=== PATIENT | male | born 1980 | race Caucasian/White ===

== ENCOUNTER → 2017-05-07 | Emergency (ER) | payer MEDICARE ==
[~2017-05-07] VITALS: Ht 175.3 cm; Wt 78.6 kg
[~2017-05-07] MED LIST: ACETAMINOPHEN W1 TA6 PO; AMOXICILLIN 50500 MG PO; ANUSOL 1%-12.5%1 OIN TP; ANUSOL HC25 MG/SUPP RC; BACTROBAN22 TOP; BUSPAR DIVIDOSE15 MG PO; CLEOCIN HCL300 MG PO; FLEXERIL 1010 MG/TAB PO; LORTAB 5/500 501 TAB PO; MEDROL 4MG DOSPA4 MG PO; MOTRIN 800800 MG/TAB PO; NAPROSYN 2250 MG/TAB PO; NAPROSYN500 MG PO; NAPROXEN 3375 MG/TAB PO; NO HOME MEDICATIONS; NORCO 325 MG-51 TAB PO; NORCO 325 MG-7.1 TAB PO; OXY IR5 MG PO; PEN-VEE K250 MG PO; PEN-VEE K500 MG PO; PENICILLIN V500 MG PO; PERCOCET 325 MG1 TA2 PO; PREDNISONE10 MG PO; PROZAC 10MG10 MG; REMERON45 MG PO; ROXICODONE 55 MG/TAB PO; TUSS PO; TYLENOL 500MG500 MG PO; ULTRAM 50MG TAB50 MG PO; VICOPROFEN 7.51 TAB PO
[2017-05-07 13:57] VITALS: BP 135/76; PULSE 106; TEMP 98.8
== END ==
LOC: COL.ER 13:54
DX: K08.89 Other specified disorders of teeth and supporting structures (principal); K03.81 Cracked tooth; F42.9 Obsessive-compulsive disorder, unspecified

== ENCOUNTER 2017-05-09 13:06 | Emergency (ER) | payer MEDICARE ==
[~2017-05-09] VITALS: Ht 175.3 cm; Wt 72.7 kg
[2017-05-09 13:08] VITALS: BP 130/66; PULSE 93; TEMP 98.2
== END 2017-05-09 15:39 | disposition home or self-care (01) ==
LOC: COL.ER 13:06
DX: S80.11XA Contusion of right lower leg, initial encounter (principal); M54.9 Dorsalgia, unspecified; G89.29 Other chronic pain; W22.03XA Walked into furniture, initial encounter

== ENCOUNTER → 2018-01-09 | Outpatient (REF) ==
[2018-01-09 16:59] LABS: BILIRUBIN,TOTAL 0.9 mg/dL (0.0-1.0); CALCIUM 9.4 mg/dL (8.4-10.2); CREATININE, serum 0.64 mg/dL (0.66-1.25); POTASSIUM 3.7 mmol/L (3.4-5.0); TOTAL PROTEIN 7.3 gm/dL (6.4-8.2)
== END ==
LOC: ZLAB.WCH 16:43
PROVIDERS: Nurse Practitioner Primary Care
DX: Z01.89 Encounter for other specified special examinations (principal)

== ENCOUNTER 2019-03-14 13:48 | Emergency (ER) | payer SELFPAY ==
[~2019-03-14] VITALS: Ht 182.9 cm; Wt 90.9 kg
[2019-03-14 13:50] VITALS: BP 140/104; PULSE 70; TEMP 98
[2019-03-14 14:09] LABS: BASO % 0.5 % (0.0-2.0); GRAN # 2.2 (1.4-6.5); GRAN % 53.6 % (42.2-75.2); HEMATOCRIT 40.6 % (42.0-52.0); HEMOGLOBIN 13.7 g/dl (13.5-18.0); LYMPH # 1.3 (1.2-3.4); LYMPH % 32.9 % (20.0-51.0); MEAN CELL VOLUME 89 fl (80.0-100.0); MEAN CORPUSCULAR HEMOGLOBIN 30 pg (27.0-31.0); MEAN CORPUSCULAR HGB CONC 34 g/dl (33.0-37.0); MEAN PLATELET VOLUME 10.3 fl (7.4-10.4); MONO # 0.5 (0.1-0.6); PLATELET COUNT 199 K/mm3 (130-400); RED BLOOD COUNT 4.54 M/mm3 (4.20-5.60); REDCELL DISTRIBUTION WIDTH-CV 13.2 % (11.5-14.5)
[2019-03-14 14:19] LABS: ALANINE AMINOTRANSFERASE 19 U/L (21-72); ALBUMIN 4.3 gm/dL (3.5-5.0); ALKALINE PHOSPHATASE 55 U/L (50-136); ANION GAP 11 mmol/L (7-16); AST,SGOT 30 U/L (15-37); BILIRUBIN,TOTAL 0.8 mg/dL (0.0-1.0); BLOOD UREA NITROGEN 15 mg/dL (9-20); CARBON DIOXIDE 27 mmol/L (22-30); CHLORIDE 106 mmol/L (98-107); CREATININE, serum 0.74 (0.66-1.25); GLUCOSE 88 mg/dL (74-106); POTASSIUM 3.7 mmol/L (3.4-5.0); SODIUM 144 mmol/L (137-145); TOTAL PROTEIN 7.4 gm/dL (6.4-8.2)
[2019-03-14 14:24] LABS: ALCOHOL(ethanol),MEDICAL < 10 mg/dL
[2019-03-14] MEDS ORDERED: NORCO 325 MG-51 TAB PO (16:42)
== END 2019-03-14 17:00 | disposition home or self-care (01) ==
LOC: COL.ER 13:48
PROVIDERS: Emergency Medicine
DX: S06.0X0A Concussion without loss of consciousness, initial encounter (principal); S02.2XXA Fracture of nasal bones, initial encounter for closed fracture; R40.2412 Glasgow coma scale score 13-15, at arrival to emergency department; V19.9XXA Pedal cyclist (driver) (passenger) injured in unspecified traffic accident, initial encounter
CPT/HCPCS: J7030; Q9967

== ENCOUNTER 2019-03-22 19:14 | Emergency (ER) | payer SELFPAY ==
[~2019-03-22] VITALS: Ht 175.3 cm; Wt 70.5 kg
[2019-03-22 19:30] VITALS: BP 121/81; TEMP 97.8
[2019-03-22 21:27] VITALS: PULSE 90
== END 2019-03-22 21:27 | disposition home or self-care (01) ==
LOC: COL.ER 19:14
DX: S93.402A Sprain of unspecified ligament of left ankle, initial encounter (principal); Z88.5 Allergy status to narcotic agent; Z86.19 Personal history of other infectious and parasitic diseases; X50.1XXA Overexertion from prolonged static or awkward postures, initial encounter; V19.9XXA Pedal cyclist (driver) (passenger) injured in unspecified traffic accident, initial encounter; Y92.410 Unspecified street and highway as the place of occurrence of the external cause

== ENCOUNTER 2019-09-08 18:04 | Emergency (ER) | payer OTHER ==
[~2019-09-08] VITALS: Ht 175.3 cm; Wt 83.9 kg
[~2019-09-08 18:04] MED LIST changes: +CRUTCHES MC
[2019-09-08 18:09] VITALS: TEMP 97.7
[2019-09-08 18:47] LABS: BASO % 0.5 % (0.0-2.0); EOS # 0.1 (0.0-0.7); EOS % 1.6 % (0-4.0); GRAN % 52.5 % (42.2-75.2); HEMATOCRIT 46.9 % (42.0-52.0); HEMOGLOBIN 15.5 g/dl (13.5-18.0); LYMPH # 1.9 (1.2-3.4); LYMPH % 32.5 % (20.0-51.0); MEAN CELL VOLUME 91 fl (80.0-100.0); MEAN CORPUSCULAR HEMOGLOBIN 30 pg (27.0-31.0); MEAN CORPUSCULAR HGB CONC 33 g/dl (33.0-37.0); MEAN PLATELET VOLUME 10.6 fl (7.4-10.4); MONO # 0.7 (0.1-0.6); MONO % 12.7 % (1.7-9.3); PLATELET COUNT 271 K/mm3 (130-400); RED BLOOD COUNT 5.18 M/mm3 (4.20-5.60); REDCELL DISTRIBUTION WIDTH-CV 12.8 % (11.5-14.5)
[2019-09-08 18:59] LABS: ALBUMIN 4.8 gm/dL (3.5-5.0); BILIRUBIN,TOTAL 0.6 mg/dL (0.0-1.0); C-REACTIVE PROTEIN 0.5 mg/dL (0.0-0.9); CALCIUM 9.3 mg/dL (8.4-10.2); CREATININE, serum 0.79 (0.66-1.25); POTASSIUM 4.4 mmol/L (3.4-5.0)
[2019-09-08 20:11] LABS: COLLECTION METHOD CLEAN CATCH
[2019-09-08 20:19] LABS: MUCOUS Present /lpf; PH 5 (5-8); SQUAMOUS EPITHELIAL None Seen /hpf; URINE APPEARANCE Clear; URINE BACTERIA None Seen /hpf; URINE BILIRUBIN Negative (NEGATIVE); URINE BLOOD Negative (NEGATIVE); URINE COLOR Yellow; URINE GLUCOSE Negative (NEGATIVE); URINE KETONE Negative (NEGATIVE); URINE LEUKOCYTE ESTERASE Negative (NEGATIVE); URINE NITRATE Negative (NEGATIVE); URINE PROTEIN(semi-quant) Negative (NEGATIVE); URINE RBC 0-2 /hpf; URINE UROBILINOGEN Negative (NEGATIVE)
[2019-09-08 21:22] VITALS: BP 110/83; PULSE 81
== END 2019-09-08 21:22 | disposition home or self-care (01) ==
LOC: COL.ER 18:04
PROVIDERS: Emergency Medicine
DX: K62.5 Hemorrhage of anus and rectum (principal); R10.9 Unspecified abdominal pain
CPT/HCPCS: J2405; J3010; J7030; Q9967

== ENCOUNTER 2020-02-22 17:02 | Emergency (ER) | payer SELFPAY ==
[~2020-02-22] VITALS: Ht 182.9 cm; Wt 84.1 kg
[2020-02-22 17:04] VITALS: TEMP 98.4
[2020-02-22 18:19] LABS: BASO % 0.5 % (0.0-2.0); EOS # 0.1 (0.0-0.7); EOS % 1.4 % (0-4.0); GRAN # 3.7 (1.4-6.5); GRAN % 57.4 % (42.2-75.2); HEMATOCRIT 44.3 % (42.0-52.0); HEMOGLOBIN 14.9 g/dl (13.5-18.0); LYMPH # 1.8 (1.2-3.4); LYMPH % 27.3 % (20.0-51.0); MEAN CELL VOLUME 88 fl (80.0-100.0); MEAN CORPUSCULAR HEMOGLOBIN 30 pg (27.0-31.0); MEAN CORPUSCULAR HGB CONC 34 g/dl (33.0-37.0); MEAN PLATELET VOLUME 10.8 fl (7.4-10.4); MONO # 0.8 (0.1-0.6); MONO % 13.1 % (1.7-9.3); PLATELET COUNT 230 K/mm3 (130-400); RED BLOOD COUNT 5.04 M/mm3 (4.20-5.60); REDCELL DISTRIBUTION WIDTH-CV 13.1 % (11.5-14.5)
[2020-02-22 18:23] LABS: PROTHROMBIN TIME 10.6 SECONDS (9.7-12.8)
[2020-02-22 18:31] LABS: ALANINE AMINOTRANSFERASE 23 U/L (4-49); ALBUMIN 4.2 gm/dL (3.5-5.0); ALKALINE PHOSPHATASE 71 U/L (50-136); ANION GAP 7 mmol/L (7-16); AST,SGOT 29 U/L (15-37); BILIRUBIN,TOTAL 0.4 mg/dL (0.0-1.0); BLOOD UREA NITROGEN 15 mg/dL (9-20); C-REACTIVE PROTEIN 0.9 mg/dL (0.0-0.9); CALCIUM 9.5 mg/dL (8.4-10.2); CARBON DIOXIDE 30 mmol/L (22-30); CHLORIDE 98 mmol/L (98-107); CREATINE KINASE 49 U/L (55-170); CREATININE, serum 0.76 (0.66-1.25); GLUCOSE 109 mg/dL (74-106); LIPASE 72 U/L (23-300); POTASSIUM 4.3 mmol/L (3.4-5.0); SODIUM 136 mmol/L (137-145); TOTAL PROTEIN 7.6 gm/dL (6.4-8.2)
[2020-02-22 18:42] LABS: TROPONIN-I < 0.012 ng/mL (0.000-0.035)
[2020-02-22 19:50] VITALS: BP 110/98; PULSE 82
== END 2020-02-22 19:58 | disposition home or self-care (01) ==
LOC: COL.ER 17:02
PROVIDERS: Emergency Medicine
DX: R11.2 Nausea with vomiting, unspecified (principal); R19.7 Diarrhea, unspecified; R10.84 Generalized abdominal pain; M79.10 Myalgia, unspecified site
CPT/HCPCS: J2405; J2550; J7030

== ENCOUNTER 2021-03-10 15:15 | Emergency (ER) | payer SELFPAY ==
[~2021-03-10] VITALS: Ht 182.9 cm; Wt 84.1 kg
[2021-03-10 15:34] VITALS: TEMP 98.7
[2021-03-10 16:11] LABS: BASO % 0.4 % (0.0-2.0); EOS # 0.1 (0.0-0.7); EOS % 0.7 % (0-4.0); GRAN # 6.2 (1.4-6.5); GRAN % 75.9 % (42.2-75.2); HEMATOCRIT 47.7 % (42.0-52.0); HEMOGLOBIN 15.9 g/dl (13.5-18.0); LYMPH % 11.8 % (20.0-51.0); MEAN CELL VOLUME 88 fl (80.0-100.0); MEAN CORPUSCULAR HEMOGLOBIN 29 pg (27.0-31.0); MEAN CORPUSCULAR HGB CONC 33 g/dl (33.0-37.0); MEAN PLATELET VOLUME 10.4 fl (7.4-10.4); MONO # 0.9 (0.1-0.6); MONO % 10.8 % (1.7-9.3); PLATELET COUNT 230 K/mm3 (130-400); RED BLOOD COUNT 5.43 M/mm3 (4.20-5.60)
[2021-03-10 16:24] LABS: ALBUMIN 4.3 gm/dL (3.5-5.0); BILIRUBIN,TOTAL 0.5 mg/dL (0.0-1.0); CREATININE, serum 0.57 (0.66-1.25); POTASSIUM 3.8 mmol/L (3.4-5.0); TOTAL PROTEIN 7.8 gm/dL (6.4-8.2)
[2021-03-10] MEDS ORDERED: CEPHALEXIN500 M1 PO (17:24)
[2021-03-10 17:30] VITALS: BP 148/95; PULSE 100
== END 2021-03-10 18:05 | disposition home or self-care (01) ==
LOC: COL.ER 15:15
PROVIDERS: Personal Emergency Response Attendant
DX: J40 Bronchitis, not specified as acute or chronic (principal); L73.9 Follicular disorder, unspecified; Z87.891 Personal history of nicotine dependence; Z95.5 Presence of coronary angioplasty implant and graft; Z20.822 Contact with and (suspected) exposure to COVID-19
CPT/HCPCS: J0696; J7030

== ENCOUNTER 2021-07-25 05:23 | Emergency (ER) | payer SELFPAY ==
[~2021-07-25] VITALS: Ht 182.9 cm; Wt 84.1 kg
[~2021-07-25 05:23] MED LIST changes: +CEPHALEXIN500 M1 PO
[2021-07-25 06:16] VITALS: TEMP 97.9
[2021-07-25 06:53] LABS: BASO % 0.3 % (0.0-2.0); EOS # 0.1 K/mm3 (0.0-0.7); EOS % 0.9 % (0-4.0); GRAN # 4.2 K/mm3 (1.4-6.5); GRAN % 65.2 % (42.2-75.2); HEMOGLOBIN 14.9 g/dl (13.5-18.0); LYMPH % 14.7 % (20.0-51.0); MEAN CELL VOLUME 88 fl (80.0-100.0); MEAN CORPUSCULAR HEMOGLOBIN 29 pg (27.0-31.0); MEAN CORPUSCULAR HGB CONC 33 g/dl (33.0-37.0); MONO # 1.2 K/mm3 (0.1-0.6); MONO % 18.7 % (1.7-9.3); PLATELET COUNT 184 K/mm3 (130-400); REDCELL DISTRIBUTION WIDTH-CV 12.9 % (11.5-14.5)
[2021-07-25 07:51] LABS: ALBUMIN 3.6 gm/dL (3.5-5.0); BILIRUBIN,TOTAL 0.7 mg/dL (0.2-1.2); CALCIUM 8.4 mg/dL (8.4-10.2); CREATININE, serum 0.71 mg/dL (0.72-1.25); POTASSIUM 3.2 mmol/L (3.5-4.5); TOTAL PROTEIN 6.6 gm/dL (6.2-8.1)
[2021-07-25] MEDS ORDERED: ZOFRAN ODT4 MG PO (08:07)
[2021-07-25] MEDS ORDERED: FLEXERIL 1010 MG/TAB PO (08:07)
[2021-07-25] MEDS ORDERED: PREDNISONE20 MG PO (08:07)
[2021-07-25 08:19] VITALS: BP 128/85; PULSE 89
== END 2021-07-25 08:36 | disposition home or self-care (01) ==
LOC: COL.ER 05:23
PROVIDERS: Emergency Medicine
DX: R11.2 Nausea with vomiting, unspecified (principal)
CPT/HCPCS: J2405; J7030; J7512

== ENCOUNTER 2023-10-31 13:17 | Emergency (ER) | payer SELFPAY ==
[~2023-10-31] VITALS: Ht 182.9 cm; Wt 90.0 kg
[~2023-10-31 13:17] MED LIST changes: +PREDNISONE20 MG PO; +ZOFRAN ODT4 MG PO
[2023-10-31 13:25] VITALS: TEMP 98.1
[2023-10-31] MEDS ORDERED: Famotidine 20 MG TAB PO ONE (14:00)
[2023-10-31] MEDS ORDERED: Mag/Al Hydrox/Simeth Susp 30 ML CUP PO ONE (14:00)
[2023-10-31] MEDS ORDERED: PRIL40 PO (14:20)
[2023-10-31 15:35] VITALS: BP 128/96; PULSE 107
== END 2023-10-31 15:33 | disposition home or self-care (01) ==
LOC: COL.ER 13:17
DX: K21.00 Gastro-esophageal reflux disease with esophagitis, without bleeding (principal); R00.0 Tachycardia, unspecified